=== PATIENT | male | born 1965 | race Caucasian/White ===

== ENCOUNTER 2017-12-16 12:24 | Emergency (ER) | payer OTHER, SELFPAY ==
[2017-12-16 12:25] VITALS: BP 129/84; PULSE 74; RESP 15; TEMP 36.2; O2SAT 99; BMI 31.4
--- NOTE | 2017-12-16 12:29 | EKG12_ITS ---
Test Reason : PALP Blood Pressure : / mmHG Vent. Rate : 069 BPM Atrial Rate : 069 BPM P-R Int : 160 ms QRS Dur : 096 ms QT Int : 378 ms P-R-T Axes : -06 -03 016 degrees QTc Int : 405 ms Normal sinus rhythm Normal ECG Confirmed by GOOD GARCIA, MORE ([id number]), marketing editor CHRIS TORRES ([id number]) on 12/18/2017 3:14:46 PM Referred By: More Beck Confirmed By:MORE BECK MD
[2017-12-16 12:39] VITALS: BP 128/86; PULSE 73; RESP 16; O2SAT 98
--- NOTE | 2017-12-16 12:45 | ED.VISSUMM ---
- ER Visit Summary Date of Service: 12/16/17 Chief Complaint: [] Palpitations for 2 days intermittently History of Present Illness: The patient is a 52 M [] intermittent palpitations for the last 2 days it consists of extra heartbeats. No racing heart. No chest pain no fever no cough no shortness of breath no syncope. He indicates he has no history of CAD in fact he has been evaluated extensively for CAD including cardiac cath and stress test about 5 years ago but that showed no signs of CAD he does see Dr. Beck because of occasional palpitations he is on no specific therapy or meds, he indicates that on Sunday he seemed to be gagging quite a bit because he inhaled some dust he feels that triggered all the above no symptoms have resolved he has no difficulty swallowing or breathing, he has had no fever no cough and again no history of [place] PE or DVT Physical Examination: [] Resting comforting the bed his vital signs are unremarkable he does have an occasional PVC that occurs about 1 every minute or 2 he is not aware of the PVCs when they occur rather he is only aware of the extra heartbeats if he takes his pulse which is what he has been doing he has no complaints from the PVCs unless he is actually taking his pulse head neck exam unremarkable the lungs are clear the heart tones are normal the abdomen soft nontender upper lower extremities unremarkable no cyanosis clubbing or edema neurologically is awake alert moving all 4 Test Results: [] Emergency Department Course and Treatment: [] EKG shows no acute injury pattern sinus rhythm He refused a chest x-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 Beck and rest and return for change in symptoms is very comfort with this plan Disposition: [] Home stable Impression: [] Intermittent palpitations for 2 days This note was generated with Umamiation software. It may contain incorrect words, spelling, and punctuation that were not noted in review of the chart prior to signing ED Disposition - Plan for ED Patient: Chief Complaint: Palpitations Referrals: Tiny Morrison MD [Primary Care Provider] -
[2017-12-16 12:48] VITALS: O2SAT 100
[2017-12-16] MEDS: 0.9% Normal Saline 1,000 ML 150 ML IV (12:48)
--- NOTE | 2017-12-16 12:48 | ED.DCSUM_ITS ---
- ER Visit Summary Date of Service: 12/16/17 Chief Complaint: [] Palpitations for 2 days intermittently History of Present Illness: The patient is a 52 M [] intermittent palpitations for the last 2 days it consists of extra heartbeats. No racing heart. No chest pain no fever no cough no shortness of breath no syncope. He indicates he has no history of CAD in fact he has been evaluated extensively for CAD including cardiac cath and stress test about 5 years ago but that showed no signs of CAD he does see Dr. Beck because of occasional palpitations he is on no specific therapy or meds, he indicates that on Sunday he seemed to be gagging quite a bit because he inhaled some dust he feels that triggered all the above no symptoms have resolved he has no difficulty swallowing or breathing , he has had no fever no cough and again no history of [place] PE or DVT Physical Examination: [] Resting comforting the bed his vital signs are unremarkable he does have an occasional PVC that occurs about 1 every minute or 2 he is not aware of the PVCs when they occur rather he is only aware of the extra heartbeats if he takes his pulse which is what he has been doing he has no complaints from the PVCs unless he is actually taking his pulse head neck exam unremarkable the lungs are clear the heart tones are normal the abdomen soft nontender upper lower extremities unremarkable no cyanosis clubbing or edema neurologically is awake alert moving all 4 Test Results: [] Emergency Department Course and Treatment: [] EKG shows no acute injury pattern sinus rhythm He refused a chest x-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 Beck and rest and return for change in symptoms is very comfort with this plan Disposition: [] Home stable Impression: [] Intermittent palpitations for 2 days This note was generated with 99Presentsation software. It may contain incorrect words, spelling, and punctuation that were not noted in review of the chart prior to signing ED Disposition - Plan for ED Patient: Chief Complaint: Palpitations Referrals: Tiny Morrison MD [Primary Care Provider] -
[2017-12-16 13:00] LABS: Absolute Lymphocyte Count 1.92 X10^3/ul (0.83-4.51); Absolute Neutrophil Count 4.3 X10^3/uL (2.0-7.7); Basophil# 0.04 X10^3/uL; Basophil% 0.5 % (0-1); Eosinophil# 0.21 X10^3/uL; Eosinophils% 2.9 % (0-5); Hematocrit 43.8 % (40-54); Hemoglobin 15.2 g/dl (13.0-16.5); Lymphocyte # 1.92 X10^3/ul (4.0); Lymphocyte % 26.1 % (19-41); Mean Corp Hgb Conc 34.7 g/gl (32-36); Mean Corpuscular Hgb 29.1 pg (27.0-32.0); Mean Corpuscular Volume 83.9 fL (80-94); Mean Platelet Vol. 9.8 fl (6.2-12.0); Monocyte# 0.88 X10^3/uL; Neutrophil % 58.4 % (47-70); Platelet Count 306 K/mm3 (150-450); RBC Distribution Width CV 12.6 % (11.6-14.6); RBC Distribution Width SD 38.8 fl (35.1-43.9); Red Blood Count 5.22 M/mm3 (4.6-6.2); White Blood Count 7.4 K/mm3 (4.4-11.0)
[2017-12-16 13:02] LABS: POSITIVE COUNT NO; POSITIVE DIFFERENTIAL NO; POSITIVE MORPHOLOGY NO
[2017-12-16 13:29] LABS: Anion Gap 3 (5-15); BUN 22 mg/dL (7-18); Calcium,Total 9.2 mg/dL (8.5-10.1); Chloride 109 mmol/L (98-107); EST Glomerular Filtration Rate 84 mL/min (>60); Est Glom Filt Rate - Afr Amer 101 mL/min (>60); Estimated Creatinine Clearance 79.75 ml/min; Glucose 104 mg/dL (74-106); Potassium 4.7 mmol/L (3.5-5.1); Sodium Level 142 mmol/L (136-145)
[2017-12-16 13:44] LABS: BNP,B-Type NATRIURETIC PEPTIDE 7.3 pg/mL (0-100)
--- NOTE | 2017-12-16 14:00 | ED.DEP ---
ED Disposition - Plan for ED Patient: Chief Complaint: Palpitations Instructions: ED Palpitations Referrals: Tiny Morrison MD [Primary Care Provider] -
[2017-12-16 14:06] VITALS: BP 115/88; PULSE 71; RESP 14; O2SAT 99
--- NOTE | 2017-12-16 14:07 | ED.RN ---
REVIEWED D/C INSTRUCTIONS, FOLLOW UP CARE, AND S/S THAT WOULD WARRANT A RETURN TO THE ED WITH PT. PT VERBALIZED AN UNDERSTANDING AND DENIES FURTHER QUESTIONS FOR THIS RN. PT SKIN P/W/D, RESP EVEN AND UNLABORED, PT A&O X 3, NO DISTRESS NOTED. PT AMBULATED OUT OF ED, GAIT STEADY.
== END 2017-12-16 14:08 | disposition home or self-care (01) ==
LOC: ED 12:57
PROVIDERS: Emergency Provider Emergency Medicine; Family Provider Family Medicine; PCP Family Medicine
DX: R00.2 Palpitations (principal)
CPT/HCPCS: 80048; 83880; 84484; 85025; 93005; 96360; 96361; 99284; J7030; A4216

== ENCOUNTER → 2019-07-01 15:20 | Outpatient (CLI) | payer OTHER, SELFPAY ==
[2019-06-17 08:20] VITALS: BMI 30.7
--- NOTE | 2019-07-01 15:23 | ECHOD_ITS ---
Reason For Study: AFIB Procedure This was a 2D Doppler, Color Flow transthoracic echocardiogram. Exam performed in department. Left Ventricle Normal LV size. Left ventricular systolic function is normal. The estimated ejection fraction is 55 %. Normal diastology for age. No regional wall motion abnormalities noted. Right Ventricle Normal RV size. Normal systolic function. Atria Normal left atrium. Normal right atrium. Mitral Valve Normal mitral valve. Tricuspid Valve Normal tricuspid valve. Mild tricuspid valve insufficiency. Pulmonary artery systolic pressure is 25 mmHg. Aortic Valve Normal aortic valve. Trisinus/trileaflet aortic valve. Pulmonic Valve Normal pulmonic valve. Great Vessels Normal aortic root. The pulmonary artery is normal size. Normal inferior vena cava. Pericardium/Pleural No pericardial effusion. MMode/2D Measurements & Calculations LVIDd: 3.9 cm IVSd: 0.89 cm Ao root diam: 3.3 cm LVIDs: 2.8 cm LVPWd: 1.1 cm RVDd: 3.5 cm FS: 27.8 % LAV(MOD-bp): 39.7 ml LA A4 area: 17.4 cm2 LA dimension(2D): 3.9 cm LAV(MOD-bp) Indexed: 20.5 ml/m2 LAV(MOD-sp2): 29.5 ml LAV(MOD-sp4): 45.0 ml RA A4 area: 11.9 cm2 Time Measurements MV dec time: 0.25 sec Doppler Measurements & Calculations MV E max ravindra: 97.8 cm/sec Lat Peak E' Ravindra: 6.4 cm/sec Med Peak E' Ravindra: 6.9 cm/sec MV A max ravindra: 88.0 cm/sec E/E' lat: 15.4 E/E' med: 14.2 MV E/A: 1.1 Ao V2 max: 133.9 cm/sec LV V1 max: 122.6 cm/sec PA V2 max: 118.6 cm/sec Ao max P.2 mmHg LV V1 max P.0 mmHg PI end-d ravindra: 102.9 cm/sec TR max ravindra: 240.3 cm/sec TR max P.1 mmHg Interpretation Summary Normal LV size. Left ventricular systolic function is normal. The estimated ejection fraction is 55 %. Structurally normal valves. Ordering Physician: Adalberto Beck Referring Physician: WILLY JOYCE Performed By: Ashly Hernandes RDCS, RVT
== END ==
LOC: CVS 15:23
PROVIDERS: PCP Family Medicine; Referring Provider Internal Medicine Cardiovascular Disease; Visit Provider Internal Medicine Cardiovascular Disease
DX: I48.0 Paroxysmal atrial fibrillation (principal); I10 Essential (primary) hypertension
CPT/HCPCS: 93306

== ENCOUNTER → 2021-04-04 07:19 | Outpatient (CLI) | payer OTHER, SELFPAY ==
--- NOTE | 2021-04-04 07:23 | US_ITS ---
STUDY: ABDOMINAL ULTRASOUND - RIGHT UPPER QUADRANT REASON FOR VISIT: Male, 56 years old FATTY INFILTRATION OF LIVER TECHNIQUE: Ultrasound evaluation of the right upper quadrant was performed with real-time and static cm-scale imaging. TECHNICAL QUALITY: Adequate. COMPARISON: None. FINDINGS: Liver: The liver measures 17 cm. There is slightly increased echogenicity of the liver. The bile ducts are within normal limits. There is hepatic color flow. The direction of portal flow is hepatopetal. There is no demonstrated mass lesion. Gallbladder: Normal distended gallbladder. The gallbladder wall measures 2 mm. There is a negative sonographic Christian''s sign. There is no pericholecystic fluid. There are no gallstones. Common Bile Duct (C.B.D.): The common bile duct measures 3 mm. Pancreas: There is no demonstrated pancreatic mass or cyst. Right Kidney: Normal size of the right kidney. There is no demonstrated renal mass or cyst. Mildly lobular contours of the right kidney. There is no right hydronephrosis. US/Liver IMPRESSION: 1. Slightly increased echogenicity of the liver compatible with history provided of fatty infiltration. 2. No hepatic masses or biliary dilation. Electronically Signed: Martin Lanier MD (Brooks) at 8:00 EST , Service support ,
== END ==
PROVIDERS: PCP Internal Medicine; Referring Provider Internal Medicine; Visit Provider Internal Medicine
DX: K76.0 Fatty (change of) liver, not elsewhere classified (principal)
CPT/HCPCS: 76705

== ENCOUNTER → 2022-01-25 | Outpatient (CLI) | payer OTHER, SELFPAY ==
--- NOTE | 2022-01-26 09:17 | STRESSREP ---
Stress Test Report Exercise stress test. 57-year-old male with a history of chest pain. Stress protocol: Resting EKG demonstrates normal sinus rhythm with a rate of 80 bpm normal intervals are noted resting blood pressure is 130/78 mmHg. Patient exercised according to regular Mykel protocol for total duration of 9 minutes completing stage III of the Mykel protocol. The maximum heart rate was 150 bpm which was 90% of max impacted heart rate the maximum workload was 10.1 metabolic equivalents. At rest there were no ST or T wave changes noted suggest ischemia and at peak exercise nonspecific ST changes were noted with did not meet the criteria for ischemia no clinical angina was noted. Conclusion: Exercise stress test with no EKG criteria for ischemia at a high workload. No clinical angina noted. No arrhythmias present.
== END | disposition home or self-care (01) ==
LOC: CVS 10:48
PROVIDERS: PCP Internal Medicine; Referring Provider Internal Medicine Cardiovascular Disease; Visit Provider Internal Medicine Cardiovascular Disease
DX: I10 Essential (primary) hypertension (principal); R07.9 Chest pain, unspecified
CPT/HCPCS: 93017

== ENCOUNTER → 2022-11-09 | Outpatient (CLI) | payer OTHER, SELFPAY ==
--- NOTE | 2022-11-09 08:00 | US_ITS ---
STUDY: ABDOMINAL ULTRASOUND - RIGHT UPPER QUADRANT REASON FOR VISIT: Male, 57 years old Fatty infiltration of liver TECHNIQUE: Ultrasound evaluation of the right upper quadrant was performed with real-time and static cm-scale imaging. TECHNICAL QUALITY: Adequate. COMPARISON: Comparison is made with prior study dated April 04, 2021. FINDINGS: Liver: The liver measures 17 cm. There is increased echogenicity consistent with fatty infiltration. The bile ducts are within normal limits. There is hepatic color flow. The direction of portal flow is hepatopetal. There is no demonstrated mass lesion. Gallbladder: Normal distended gallbladder. The gallbladder wall measures 2.0 mm. There is a negative sonographic Christian''s sign. There is no pericholecystic fluid. There are no gallstones. Common Bile Duct (C.B.D.): The common bile duct measures 3 mm. Pancreas: Normal size of the head, body and tail of the pancreas. There is normal echogenicity of the pancreas. There is no demonstrated pancreatic mass or cyst. Right Kidney: Normal size of the right kidney. The right kidney measures 12 cm x 6.4 cm x 5.9 cm. Normal renal cortex. The right cortex measures 1.4 cm. There is no demonstrated renal mass or cyst. There is no right hydronephrosis. IMPRESSION: Mild degree of fatty infiltration of the liver. Stable examination. Electronically Signed: Bakari Zhang MD at 14:59 EDT , STUDY: ABDOMINAL ULTRASOUND - ELASTOGRAPHY REASON FOR VISIT: Male, 57 years old. Fatty infiltration of the liver. TECHNIQUE: Liver stiffness measurements were obtained on a ChoiceMap 85 ultrasound machine using a CA 1-7 probe following the SRU guidelines. 3 measurements were obtained using a 2-D-SWE method. TheIQR/M was 16 suggesting a quality data set. TECHNICAL QUALITY: Adequate. COMPARISON: Comparison is made with prior examination dated April 04, 2021. FINDINGS: Liver: There is no demonstrated mass lesion. Median liver stiffness measured 8.6 kPa. Abdomen: There is no demonstrated mass lesion. US/ABD Limited w/ Elastography IMPRESSION: Liver stiffness measures 8.6 kPa compatible with F2-F3 (Mild to moderate liver fibrosis) Metavir score. Electronically Signed: Bakari Zhang MD at 15:00 EDT ,
== END | disposition home or self-care (01) ==
LOC: US 07:59
PROVIDERS: PCP Internal Medicine; Referring Provider Internal Medicine; Visit Provider Internal Medicine
DX: K76.0 Fatty (change of) liver, not elsewhere classified (principal)
CPT/HCPCS: 76705; 76981

== ENCOUNTER 2023-12-28 09:00 | Emergency (ER) | payer OTHER, SELFPAY ==
[2023-12-28 09:01] VITALS: BP 132/79; PULSE 66; RESP 18; TEMP 36.4; O2SAT 99; BMI 29.9
[2023-12-28 09:19] VITALS: O2SAT 98
--- NOTE | 2023-12-28 09:19 | EKG12_ITS ---
Test Reason : CP Blood Pressure : / mmHG Vent. Rate : 066 BPM Atrial Rate : 066 BPM P-R Int : 172 ms QRS Dur : 088 ms QT Int : 394 ms P-R-T Axes : -08 -08 017 degrees QTc Int : 413 ms Normal sinus rhythm Normal ECG Confirmed by TERESA GARCIA, AKIKO ([id number]), video effects editor ORLANDO HAAS ([id number]) on 12/31/2023 6:36:27 AM Referred By: LINDA Confirmed By:TIFFANIE MOORE MD
[2023-12-28] MEDS: Aspirin 81 MG TAB.CHEW 324 MG PO (09:30)
--- NOTE | 2023-12-28 09:30 | RAD_ITS ---
STUDY: X-RAY CHEST REASON FOR EXAM: Male, 58 years old. Chest pain. TECHNIQUE: Single frontal view of the chest. COMPARISON: August 05, 2021 FINDINGS: The lungs are clear and expanded. There is no demonstrated pleural abnormality. Normal size heart. Normal mediastinum and nicole. Normal visualized pulmonary arteries. Normal visualized aortic arch and descending thoracic aorta. No abnormality of the visualized soft tissue structures of the upper abdomen. RAD/Chest 1 View (Portable) IMPRESSION: Stable chest with no acute or active cardiopulmonary disease Electronically Signed: Oliverio Cuadra MD at 9:48 EDT ,
[2023-12-28 09:32] LABS: Absolute Lymphocyte Count 1.81 X10^3/uL (0.83-4.51); Absolute Neutrophil Count 5.3 X10^3/uL (2.0-7.7); Basophil# 0.05 X10^3/uL; Basophil% 0.6 % (0-1); Eosinophil# 0.19 X10^3/uL; Eosinophils% 2.4 % (0-5); Hematocrit 44.7 % (40-54); Hemoglobin 15.1 g/dL (13.0-16.5); Lymphocyte # 1.81 X10^3/ul (0.83-4.51); Lymphocyte % 22.6 % (19-41); Mean Corp Hgb Conc 33.8 g/dL (32-36); Mean Corpuscular Hgb 28.4 pg (27.0-32.0); Mean Corpuscular Volume 84.2 fL (80-94); Mean Platelet Vol. 9.7 fl (6.2-12.0); Monocyte# 0.67 X10^3/uL; Monocyte% 8.4 % (0-10); NRBC Flagged by Analyzer 0 % (0-5); Neutrophil # 5.27 X10^3/uL (2.7-7.7); Neutrophil % 65.8 % (47-70); Platelet Count 292 K/mm3 (150-450); RBC Distribution Width CV 12.2 % (11.6-14.6); RBC Distribution Width SD 36.9 fl (35.1-43.9); Red Blood Count 5.31 M/mm3 (4.6-6.2)
[2023-12-28 09:49] LABS: Anion Gap 3 (5-15); BUN 18 mg/dL (7-18); BUN/Creat Ratio 18.5 RATIO (10-20); Calcium,Total 8.8 mg/dL (8.5-10.1); Chloride 108 mmol/L (98-107); Creatinine, Serum 0.97 mg/dL (0.70-1.30); EST Glomerular Filtration Rate 85 mL/min (>60); Est Glom Filt Rate - Afr Amer 102 mL/min (>60); Estimated Creatinine Clearance 89.43 ml/min; Glucose 106 mg/dL (74-106); Potassium 4.2 mmol/L (3.5-5.1); Sodium Level 140 mmol/L (136-145); Troponin-I HS (w/2H Reflex) 3 pg/mL (3.0-78.0)
[2023-12-28 09:59] VITALS: BP 118/72; PULSE 78; RESP 18; O2SAT 98
[2023-12-28 11:00] VITALS: BP 108/76; PULSE 55; RESP 17; O2SAT 96
--- NOTE | 2023-12-28 11:15 | ED.VIS.CHEST ---
HPI History of Present Illness Chief Complaint: Chest Pain Detail of Chief Complaint: Intermittent chest pressure Informant: patient Onset/Context/Timing Onset: Today, Yesterday and Days Activity at onset: sudden, rest and light activity Timing: Intermittent Quality: Positive for Aching and Tightness Location: Substernal Current Severity: Gone Worsened By: Nothing Relieved By: Nothing Associated Symptoms: Positive for Dyspnea; Negative for Nausea, Vomiting, Diaphoresis, Cough, Fever, Lightheadedness, Acid Reflux or Palpitations Narrative Narrative: Patient is a 58-year-old male. He is on atenolol and flecainide. 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 He has no known history of coronary disease. His last cardiac catheterization was 20 years ago. He does have history of GERD. He does not believe this is GERD. He is vague and is not very detail oriented. He had several episodes over several days. Prior Similar Symptoms: No Recent Illness/Hospitalization: No CVD Risk Factors: Positive for Hypertension; Negative for Diabetes, Hypercholesterolemia, Family History 1' </=55 or Smoking PE Risk Factors: Negative for Recent Travel/Surgery, Recent Immobilization, Prior DVT or PE, Cancer or OCP + Smoking + >/=35 TAD Risk Factors: Positive for Hypertension; Negative for Marfan's Syndrome or Family History [facility] Medical History (Updated 12/28/23 @ 13:[address] Laurent Vaca MD) Obesity Alcohol addiction Persistent left SVC (superior vena cava) GERD (gastroesophageal reflux disease) Essential (primary) hypertension Precordial chest pain Paroxysmal atrial fibrillation Palpitations Home Medications ?Medication ?Instructions ?Recorded ?Last Taken ?Type Prevacid 24Hr 15 mg 15 mg PO DAILY Pt needs name brand 05/24/23 Unknown Rx capsule,delayed release med, generic doesn't work #90 caps (lansoprazole) atenolol 25 mg tablet 12.5 mg (1/2 x 25 mg) PO BID #90 05/24/23 Unknown Rx tabs flecainide 50 mg tablet 50 mg PO Q12H #180 tabs 05/24/23 Unknown Rx Allergy/AdvReac Type Severity Reaction Status Date / Time Penicillins Allergy Unknown Verified 12/28/23 09:03 shellfish derived AdvReac Severe Unknown Verified 12/28/23 09:03 shrimp AdvReac NAUSEA/VOMI Verified 12/28/23 09:03 TING/DIARRH EA Family History Mother Cancer Diabetes Alzheimers disease Brother Myocardial infarction age 55 coronary stent CAD (coronary artery disease) Coronary stent/NSTEMI Other CVA (cerebral vascular accident) Surgical History History of cardioversion (01/2015) History of left heart catheterization (2009) History of vasectomy History of herniorrhaphy History of vasectomy History of umbilical hernia repair Social History Smoking Status: Current every day smoker tobacco type: smokeless tobacco Smokeless tobacco user: chewing tobacco and other Electronic Cigarette Use: not used second hand exposure: No alcohol intake: former details: Quit 28 years ago substance use type: does not use caffeine: Yes Type: carbonated beverages Number of servings: 2 and coffee Number of servings: 2 ROS ROS ED Constitutional Constitutional ED: Denies chills, fever(s), subjective or sweats Eyes Eyes: Reports none ENT ENT ED: Denies rhinorrhea or sore throat Cardiovascular Cardiovascular: Reports as per HPI; Denies orthopnea or paroxysmal nocturnal dyspnea Respiratory/Chest Respiratory/Chest: Reports dyspnea; Denies cough, dyspnea on exertion, orthopnea, paroxysmal nocturnal dyspnea or sputum Gastrointestinal Gastrointestinal: Denies abdominal pain, diarrhea, melena, nausea or vomiting Genitourinary Genitourinary ED: Denies dysuria, hematuria or urinary frequency Musculoskeletal Musculoskeletal: Denies arthralgias, back pain, myalgias or neck pain Integumentary Denies rash Neurologic Neurologic: Denies paresthesias or weakness Psychiatric Psychiatric: Denies anxiety Endocrine Endocrinology: Denies cold intolerance or heat intolerance Hematologic/Lymphatic Hematologic/Lymphatic: Denies easy bleeding or easy bruising EXAM Physical Exam Const Vital Signs: 12/28/23 09:01 12/28/23 09:19 12/28/23 09:59 Temperature 97.6 F L Temperature Source Temporal Pulse Rate 66 78 Respiratory Rate 18 18 Blood Pressure 132/79 H 118/72 Blood Pressure Mean 96 87 Pulse Ox 99 98 98 Oxygen Delivery Method Room Air Room Air Room Air 12/28/23 11:00 12/28/23 12:00 Temperature Temperature Source Pulse Rate 55 L Respiratory Rate 17 18 Blood Pressure 108/76 117/77 Blood Pressure Mean 86 90 Pulse Ox 96 97 Oxygen Delivery Method Room Air Room Air Positive well nourished and well developed Constitutional Narrative: Vital signs noted. General Appearance ED: well developed and NAD HEENT Reports moist mucous membranes normocephalic and atraumatic Eyes PERRL and EOMs intact bilaterally General Eye ED: Negative for pale conjunctiva or scleral icterus Neck no lymphadenopathy, supple and no JVD Chest Wall inspection of chest normal and palpation of chest normal Resp normal respiratory effort and clear to auscultation bilaterally Cardio regular rate, regular rhythm, S1 normal heart sound, S2 normal heart sound and no murmurs Peripheral Pulses: pulses 2+ throughout GI normal to inspection, nondistended, normoactive bowel sounds, soft to palpation, non-tender, non-distended and no masses; Negative for hepatosplenomegaly Back/Spine no CVA tenderness Extremity normal to inspection Extremity Narrative: There is no asymmetry, swelling, discoloration, leg vein distention, palpable cords or tenderness along the distribution of the deep venous system.. Patient has no evidence of PAD. Neuro oriented x3 and CN's II-XII intact bilaterally Sensorium / Orientation: awake and alert Psych mental status grossly normal Skin no rashes or lesions noted and no wounds Heart Score History: Slightly/Non-Suspicious ECG: Normal Age: >45 - <65 years Risk Factors: 1 or 2 Risk Factors Troponin: </= Normal Limit Score: 2 MDM MDM MDM Narrative Medical decision making narrative: Patient presents with chest pain. Need to evaluate for cardiac versus noncardiac. Noncardiac would include GERD, peptic ulcer disease, pulmonary, esophageal. EKG, appropriate blood work including 2-hour troponin was obtained. Patient treated with aspirin. Lab Data Attestation: I reviewed the patient's lab results. Lab results narrative: CBC is normal. BMP is unremarkable other than slightly elevated chloride. First troponin is 3. Second troponin is 4. Delta was 1. Since both are less than or equal to 4 per algorithm 100% negative probability this is not cardiac. Therefore will discharge to home. Patient informs he does have history of GERD. Labs: Laboratory Results - last 24 hr 12/28/23 12/28/23 09:23 11:29 WBC 8.0 RBC 5.31 Hgb 15.1 Hct 44.7 MCV 84.2 MCH 28.4 MCHC 33.8 RDW Std Deviation 36.9 RDW Coeff of Miladis 12.2 Plt Count 292 MPV 9.7 Immature Gran % (Auto) 0.200 Neut % (Auto) 65.8 Lymph % (Auto) 22.6 Weber % (Auto) 8.4 Eos % (Auto) 2.4 Baso % (Auto) 0.6 Absolute Neuts (auto) 5.3 Absolute Lymphs (auto) 1.81 Nucleated RBC % 0 Sodium 140 Potassium 4.2 Chloride 108 H Carbon Dioxide 29.0 Anion Gap 3 L BUN 18 Creatinine 0.97 Estim Creat Clear Calc 89.43 Est GFR (MDRD) Af Amer 102 Est GFR (MDRD) Non-Af 85 BUN/Creatinine Ratio 18.5 Glucose 106 Calcium 8.8 Troponin I High Sens 3 4 Radiography Chest X-Ray - ED: 1 View and Read by ED Physician (Normal cardiac silhouette and size. Lung parenchyma is normal. Hilum is normal. Osseous trucks is unremarkable. This was independently reviewed interpreted by me at 0947.) Diagnostic Testing: Clinical Impression(s) from Imaging Studies Chest X-Ray 12/28/23 09:30 IMPRESSION: Stable chest with no acute or active cardiopulmonary disease Electronically Signed: Oliverio Cuadra MD at 9:48 EDT Reading Location ID and State: [facility] / [place] , Service support , Treatment and Re-Evaluation :: Patient was informed of results. Patient was informed because of acuity and volume there was a delay. I apologize. He understood. Discharge Plan Triage Chief Complaint: Chest Pain ED Provider: Laurent Vaca Dx/Rx/DC Orders Clinical Impression: Chest pressure, Essential (primary) hypertension, Persistent left SVC (superior vena cava), Paroxysmal atrial fibrillation, Sinus bradycardia Instructions: ED Chest Pain, Noncardiac Prescriptions: No Action atenolol 25 mg tablet 12.5 mg PO BID Qty: 90 3RF flecainide 50 mg tablet 50 mg PO Q12H Qty: 180 3RF lansoprazole [Prevacid 24Hr] 15 mg capsule,delayed release(DR/EC) 15 mg PO DAILY Qty: 90 3RF Primary Care Provider: Care Physician,No Primary Referrals: Adalberto Beck MD [Med Staff - Active Staff] - 1-2 Weeks Rony Garcia DO [Med Staff - Active Staff] - 1-2 Weeks Care Physician,No Primary [Primary Care Provider] - Print Language: Montserratian Disposition Disposition: Home, Self Care
[2023-12-28 11:26] LABS: Reflex Troponin-HS? (from REC) Y
[2023-12-28 11:59] LABS: Troponin-I HS 4 pg/mL (3.0-78.0)
[2023-12-28 12:00] VITALS: BP 117/77; RESP 18; O2SAT 97
[2023-12-28 13:18] VITALS: BP 147/88; PULSE 18; RESP 17; TEMP 36.6; O2SAT 98
== END 2023-12-28 13:21 | disposition home or self-care (01) ==
PROVIDERS: Emergency Provider Emergency Medicine; Visit Provider Emergency Medicine
DX: R07.89 Other chest pain (principal); I48.0 Paroxysmal atrial fibrillation; Q26.1 Persistent left superior vena cava; R00.1 Bradycardia, unspecified; F17.220 Nicotine dependence, chewing tobacco, uncomplicated; I10 Essential (primary) hypertension; Z79.899 Other long term (current) drug therapy
CPT/HCPCS: 71045; 80048; 84484; 85025; 93005; 99283; A4216

== ENCOUNTER 2024-01-31 07:21 | Outpatient (CLI) | payer OTHER, SELFPAY ==
--- NOTE | 2024-01-31 07:26 | US_ITS ---
INDICATION: liver fibrosis EXAMINATION: Ultrasound US Abdomen Complete TECHNIQUE: Bryant-scale and color Doppler imaging was performed of the abdomen. COMPARISON: CT scan of the abdomen and pelvis of 08/27/2013. FINDINGS: LIVER: Liver is echogenic in texture measuring about 16.8 cm in length. No focal lesions definitely identified. Vein is patent with normal hepatopedal flow. No intrahepatic biliary ductal dilatation. There is no free fluid. GALLBLADDER AND BILIARY TREE: No shadowing gallstone, pericholecystic fluid or gallbladder wall thickening is demonstrated. The proximal common bile duct measures 5 mm, which is within normal limits for the patient''s age. SONOGRAPHIC HASKINS''S SIGN: Negative. PANCREAS: No focal abnormality is demonstrated in the pancreas as visualized on this exam. No pancreatic ductal dilatation. SPLEEN: The spleen is normal in size and homogeneous in echotexture measuring about 11.6 cm. KIDNEYS: There is no hydronephrosis. No shadowing calculus, focal lesion, or perinephric collection is demonstrated. The right kidney measures 11.4 cm in length. The renal cortex measures 1.6 cm. The left kidney measures 12.4 cm in length. The renal cortex measures 1.7 cm. VESSELS: No evidence of abdominal aortic aneurysm. The proximal abdominal aorta measures 2.1 cm transverse diameter. The IVC is patent. US/Abdomen Complete IMPRESSION: 1. Hepatic steatosis. 2. No evidence of gallstones. Electronically Signed: Damaso Conroy MD at 11:36 EDT ,
== END 2024-01-31 23:59 | disposition home or self-care (01) ==
PROVIDERS: PCP Internal Medicine; Referring Provider Internal Medicine; Visit Provider Internal Medicine
DX: K76.0 Fatty (change of) liver, not elsewhere classified (principal)
CPT/HCPCS: 76700

== ENCOUNTER 2024-06-01 17:26 | Emergency (ER) | payer OTHER, SELFPAY ==
[2024-06-01 17:27] VITALS: BP 133/86; PULSE 81; RESP 18; TEMP 36.2; O2SAT 100; BMI 30.1
--- NOTE | 2024-06-01 18:21 | ED.VIS.CHEST ---
HPI History of Present Illness Chief Complaint: Chest Pain Informant: patient Onset/Context/Timing Onset: Days (3) Activity at onset: sudden Timing: Intermittent Quality: Positive for Tightness Location: Substernal Worsened By: Exertion Relieved By: Nothing Associated Symptoms: Positive for Acid Reflux and Palpitations; Negative for Nausea, Vomiting, Diaphoresis, Dyspnea, Cough, Fever or Lightheadedness Narrative Narrative: Patient presents with chest pain and palpitations that has been constant for the past 3 days. Patient states it feels similar to when he was in atrial fibrillation. Patient states that he was recently taken off of his flecainide. Patient states that he took 2 doses of flecainide yesterday and 1 dose of flecainide today when he thought he was in atrial fibrillation. Patient admits to some palpitations. Patient admits to some tightness in the substernal area. Patient states it is worse with excessive exertion. The patient states he is able to do his normal activities without any chest pain. Patient denies any fevers or chills. Patient denies any shortness of breath or cough. Patient denies any nausea or vomiting. Patient denies any diaphoresis. CVD Risk Factors: Negative for Hypertension, Diabetes, Hypercholesterolemia, Family History 1' </=55 or Smoking PE Risk Factors: Negative for Recent Travel/Surgery, Recent Immobilization, Prior DVT or PE, Cancer or OCP + Smoking + >/=35 [facility] Medical History (Updated 06/01/24 @ 19:[address] Forest Michaud, DO) Obesity Alcohol addiction Persistent left SVC (superior vena cava) GERD (gastroesophageal reflux disease) Essential (primary) hypertension Precordial chest pain Paroxysmal atrial fibrillation Palpitations Home Medications ?Medication ?Instructions ?Recorded ?Last Taken ?Type Prevacid 24Hr 15 mg 15 mg PO DAILY Pt needs name brand 05/12/24 Unknown Rx capsule,delayed release med, generic doesn't work #90 caps (lansoprazole) atenolol 25 mg tablet 12.5 mg (1/2 x 25 mg) PO BID #90 05/28/24 Unknown Rx tabs flecainide 50 mg tablet 50 mg PO Q12H #180 tabs 05/28/24 Unknown Rx Allergy/AdvReac Type Severity Reaction Status Date / Time Penicillins Allergy Unknown Verified 06/01/24 17:27 shellfish derived AdvReac Severe Unknown Verified 06/01/24 17:27 shrimp AdvReac NAUSEA/VOMI Verified 06/01/24 17:27 TING/DIARRH EA Family History Mother Cancer Diabetes Alzheimers disease Brother Myocardial infarction age 55 coronary stent CAD (coronary artery disease) Coronary stent/NSTEMI Other CVA (cerebral vascular accident) Surgical History History of cardioversion (01/2015) History of left heart catheterization (2009) History of vasectomy History of herniorrhaphy History of vasectomy History of umbilical hernia repair Social History Smoking Status: Current every day smoker tobacco type: smokeless tobacco Smokeless tobacco user: chewing tobacco and other Electronic Cigarette Use: not used second hand exposure: No alcohol intake: former details: Quit 28 years ago substance use type: does not use caffeine: Yes Type: carbonated beverages Number of servings: 2 and coffee Number of servings: 2 ROS ROS ED Constitutional Constitutional ED: Denies chills or fever(s) Eyes Eyes: Denies blurry vision or change in vision ENT ENT ED: Denies rhinorrhea or sore throat Cardiovascular Cardiovascular: Reports chest pain and palpitations Respiratory/Chest Respiratory/Chest: Denies cough or dyspnea Gastrointestinal Gastrointestinal: Denies nausea or vomiting Genitourinary Genitourinary ED: Denies dysuria or hematuria Musculoskeletal Musculoskeletal: Denies back pain or neck pain Integumentary Denies abscess or rash Neurologic Neurologic: Denies headache(s) or weakness Allergic/Immunologic Allergic/Immunologic ED: Denies mouth swelling or urticaria EXAM Physical Exam Const Vital Signs: 06/01/24 17:27 06/01/24 17:55 06/01/24 18:27 Temperature 97.1 F L Temperature Source Temporal Pulse Rate 81 92 Respiratory Rate 18 18 Respiratory Effort Normal Non-Labored Blood Pressure 133/86 H Blood Pressure Mean 101 Pulse Ox 100 97 Oxygen Delivery Method Room Air Room Air 06/01/24 19:00 Temperature Temperature Source Pulse Rate 72 Respiratory Rate 18 Respiratory Effort Blood Pressure 120/60 Blood Pressure Mean 80 Pulse Ox 98 Oxygen Delivery Method Room Air Positive well nourished and well developed General Appearance ED: well developed and NAD HEENT Reports moist mucous membranes Neck supple and no JVD Resp normal respiratory effort and clear to auscultation bilaterally Cardio regular rate and regular rhythm GI soft to palpation, non-tender and non-distended Extremity normal to inspection Neuro oriented x3, CN's II-XII intact bilaterally and no sensory deficits noted Sensorium / Orientation: awake and alert Heart Score History: Slightly/Non-Suspicious ECG: Normal Age: >45 - <65 years Risk Factors: No Risk Factors Score: 1 MDM MDM MDM Narrative Medical decision making narrative: Differential diagnosis includes cardiac dysrhythmia, cardiac ischemia, electrolyte abnormality, pneumonia, pneumothorax, dehydration, and anxiety. EKG will be obtained to assess for cardiac dysrhythmia and cardiac ischemia. Chest x-ray will be obtained to assess for pneumonia and pneumothorax. CBC will be obtained to assess for leukocytosis and anemia. Basic metabolic profile will be obtained to assess for electrolyte abnormality and renal function. High-sensitivity troponin will be obtained to assess for cardiac ischemia. Lab Data Attestation: I reviewed the patient's lab results. Lab results narrative: CBC was reviewed and was within normal limits. Basic metabolic profile was reviewed and was within normal limits. High-sensitivity troponin was reviewed and was normal at 5. Labs: Laboratory Results - last 24 hr 06/01/24 17:45 WBC 10.1 RBC 5.20 Hgb 14.6 Hct 43.7 MCV 84.0 MCH 28.1 MCHC 33.4 RDW Std Deviation 37.8 RDW Coeff of Miladis 12.5 Plt Count 351 MPV 10.1 Immature Gran % (Auto) 0.300 Neut % (Auto) 62.9 Lymph % (Auto) 25.2 Brooke % (Auto) 9.5 Eos % (Auto) 1.6 Baso % (Auto) 0.5 Absolute Neuts (auto) 6.4 Absolute Lymphs (auto) 2.55 Nucleated RBC % 0 Sodium 139 Potassium 4.0 Chloride 108 H Carbon Dioxide 30.0 Anion Gap 1 L BUN 19 H Creatinine 1.08 Estim Creat Clear Calc 79.61 Est GFR (MDRD) Af Amer 91 Est GFR (MDRD) Non-Af 75 BUN/Creatinine Ratio 17.6 Glucose 93 Calcium 8.9 Troponin I High Sens 5 Radiography Diagnostic Testing: Patient refused chest x-ray. EKG Initial EKG: Attestation: I personally reviewed and interpreted this EKG as follows: Interpretation: Sinus Rhythm (75) and No Acute Injury Pattern Comments: EKG was obtained. On my independent interpretation, it showed a normal sinus rhythm with a rate of 75. NV interval, QRS interval, and QTc intervals were all normal. [place] was normal. There are no acute ST or T wave changes. Prior EKG tracings: available for review Prior: Unchanged (12/28/2023) Management Discussion w/another healthcare provider: Sports Coordinator (Dr. Rodriguez) Treatment and Re-Evaluation :: Patient was maintained on a cardiac exercise specialist. Patient remained in normal sinus rhythm. Patient was advised of his findings. Case was discussed with Dr. Rodriguez from cardiology. He does not recommended restarting the flecainide. He recommends having the patient call the office tomorrow morning to get set up to have a 14-day event monitor placed. Patient was instructed to do this. Patient was instructed to follow-up in 5 to 7 days. Patient was instructed to return if worse in any way. Patient understood and was agreeable with the plan. All questions were answered. Discharge Plan Triage Chief Complaint: Chest Pain ED Provider: Forest Michaud Dx/Rx/DC Orders Clinical Impression: Heart palpitations, Essential (primary) hypertension Instructions: ED Palpitations Prescriptions: No Action lansoprazole [Prevacid 24Hr] 15 mg capsule,delayed release(DR/EC) 15 mg PO DAILY Qty: 90 3RF flecainide 50 mg tablet 50 mg PO Q12H Qty: 180 3RF atenolol 25 mg tablet 12.5 mg PO BID Qty: 90 3RF Primary Care Provider: Tiny Morrison Referrals: Tiny Morrison MD [Primary Care Provider] - 5-7 Days Adalberto Beck MD [Med Staff - Active Staff] - 5-7 Days Gabriela Cottrell DO [Med Staff - Bingo Usher] - 5-7 Days Activity Restrictions/Additional Instructions: Call Dr. Beck's office tomorrow morning after 8:30 AM. You will likely need a 14-day event monitor. Dr. Beck's office will be able to arrange this for you. You do not need to restart your flecainide. Print Language: Jamaican Disposition Disposition: Home, Self Care
[2024-06-01 18:27] VITALS: PULSE 92; RESP 18; O2SAT 97
--- NOTE | 2024-06-01 18:27 | EKG12_ITS ---
Test Reason : PALITATIONS Blood Pressure : */* mmHG Vent. Rate : 75 BPM Atrial Rate : 75 BPM P-R Int : 154 ms QRS Dur : 84 ms QT Int : 370 ms P-R-T Axes : 13 -5 11 degrees QTcB Int : 413 ms Normal sinus rhythm Normal ECG When compared with ECG of 28-Dec-2023 09:07, No significant change was found Confirmed by GOOD GARCIA, MORE ([id number]), editorial assistant PADDY CERDA ([id number]) on 06/04/2024 5:48:29 AM Referred By: YANIRA/ROEL Confirmed By: MORE FUNK MD
[2024-06-01 18:40] LABS: Absolute Lymphocyte Count 2.55 X10^3/uL (0.83-4.51); Absolute Neutrophil Count 6.4 X10^3/uL (2.0-7.7); Basophil# 0.05 X10^3/uL; Basophil% 0.5 % (0-1); Eosinophil# 0.16 X10^3/uL; Eosinophils% 1.6 % (0-5); Hematocrit 43.7 % (40-54); Hemoglobin 14.6 g/dL (13.0-16.5); Lymphocyte # 2.55 X10^3/ul (0.83-4.51); Lymphocyte % 25.2 % (19-41); Mean Corp Hgb Conc 33.4 g/dL (32-36); Mean Corpuscular Hgb 28.1 pg (27.0-32.0); Mean Platelet Vol. 10.1 fl (6.2-12.0); Monocyte# 0.96 X10^3/uL; Monocyte% 9.5 % (0-10); NRBC Flagged by Analyzer 0 % (0-5); Neutrophil # 6.37 X10^3/uL (2.7-7.7); Neutrophil % 62.9 % (47-70); Platelet Count 351 K/mm3 (150-450); RBC Distribution Width CV 12.5 % (11.6-14.6); RBC Distribution Width SD 37.8 fl (35.1-43.9); White Blood Count 10.1 K/mm3 (4.4-11.0)
[2024-06-01 18:59] LABS: Anion Gap 1 (5-15); BUN 19 mg/dL (7-18); BUN/Creat Ratio 17.6 RATIO (10-20); Calcium,Total 8.9 mg/dL (8.5-10.1); Chloride 108 mmol/L (98-107); Creatinine, Serum 1.08 mg/dL (0.70-1.30); EST Glomerular Filtration Rate 75 mL/min (>60); Est Glom Filt Rate - Afr Amer 91 mL/min (>60); Estimated Creatinine Clearance 79.61 ml/min; Glucose 93 mg/dL (74-106); Sodium Level 139 mmol/L (136-145); Troponin-I HS 5 pg/mL (3.0-78.0)
[2024-06-01 19:00] VITALS: BP 120/60; PULSE 72; RESP 18; O2SAT 98
== END 2024-06-01 19:41 | disposition home or self-care (01) ==
PROVIDERS: Emergency Provider Emergency Medicine; PCP Family Medicine; Visit Provider Emergency Medicine
DX: R00.2 Palpitations (principal); I10 Essential (primary) hypertension; K21.9 Gastro-esophageal reflux disease without esophagitis; F17.220 Nicotine dependence, chewing tobacco, uncomplicated

== ENCOUNTER → 2024-06-12 | Outpatient (CLI) | payer OTHER, SELFPAY ==
--- NOTE | 2024-06-12 17:25 | STRESSREP ---
Stress Test Report Exercise myocardial perfusion stress test. 59-year-old male with a history of chest pain Stress protocol: Resting EKG demonstrates normal sinus rhythm with a rate of 59 bpm resting blood pressure is 116/78 mmHg. The patient exercised according to the regular Mykel protocol for a total duration of 9 minutes attaining a maximum heart rate of 141 bpm which was 86% of maximum predicted heart rate; the maximum workload was 10.1 metabolic equivalents. At rest there were no ST or T wave changes noted to suggest ischemia and at peak exercise upsloping ST changes only were noted which did not meet the criteria for ischemia. No clinical angina was noted the test was terminated due to the target heart rate being achieved/fatigue. The peak blood pressure was 160/72 mmHg. Rate-pressure product was 22,500. Myocardial perfusion protocol. 10.5 mCi of technetium 99m sestamibi was injected at rest. The patient exercised according to regular Mykel protocol for total duration of 9 minutes and at peak exercise 34.6 mCi of technetium 99m sestamibi was injected stress images were obtained stress and rest images were reconstructed in comparing the short axis vertical long and horizontal long axis. Gated images were also obtained. Perfusion SPECT analysis: Review of the stress images demonstrate normal uptake of tracer noted in all areas of the myocardium. The resting images similarly demonstrate normal uptake of tracer noted in all areas of the myocardium. No areas of reversibility are noted to suggest ischemia no previous infarct was noted. Gated SPECT analysis: The gated ejection fraction is 69%. Conclusion: Normal exercise myocardial perfusion stress test at a high workload Preserved ejection fraction.
== END | disposition home or self-care (01) ==
LOC: CVS 06:08
PROVIDERS: PCP Family Medicine; Referring Provider Physician Assistant Medical; Visit Provider Physician Assistant Medical
DX: R07.9 Chest pain, unspecified (principal); I48.0 Paroxysmal atrial fibrillation
CPT/HCPCS: 78452; 93017; A9500; A4216